=== PATIENT | female | born 1940 | race Asian ===

== ENCOUNTER 2017-11-30 12:32 | Outpatient (CLI) | payer OTHER ==
[~2017-11-30 12:32] MED LIST: ASCO500T20 PO; ASPI-1155 PO; CA/D1TAB7 PO; CARV12.548 PO; DICL100G19 TP; DICL75TA5 PO; DITXL5 PO; FERR325T91 PO; FOLI-43 PO; FOLI-59 PO; GABA-531 PO; GLUC-141 PO; HYDR200T80 PO; LEFL10TA16 PO; LEVO250T2 PO; LEVO75TA7 PO; MAGN250T10 PO; OMEP20CA10 PO; PRED5TAB PO; SACC250C3 PO; TRAM50TA92 PO; VITA400C19 PO; VITD2000 PO
== END 2017-11-30 19:23 | disposition home or self-care (01) ==
LOC: SRD 12:32
PROVIDERS: ATTEND Family Medicine
DX: M06.841 Other specified rheumatoid arthritis, right hand (principal); M51.37 Other intervertebral disc degeneration, lumbosacral region; M47.898 Other spondylosis, sacral and sacrococcygeal region
CPT/HCPCS: 72110; 72220-TC

== ENCOUNTER 2020-08-16 10:46 | Inpatient (IN) | payer OTHER ==
[~2020-08-16] VITALS: Ht 149.9 cm; Wt 54.0 kg
[2020-08-16 10:46] VITALS: BP_SYST 104
[~2020-08-16 10:46] MED LIST changes: -OMEP20CA10 PO; +OMEP20CA15 PO
--- NOTE | 2020-08-16 10:46 | NUR ---
Placed in room 2. Placed on conversion developer, blood pressure machine and pulse oximeter. To gown for exam. Side rails up. Report given to ISAIAS Perez.
--- NOTE | 2020-08-16 10:55 | NUR ---
ER Dr. Euceda at bedside examining patient.
[2020-08-16] MEDS ORDERED: NACL 0.9% 1,500 ML IV ONE (11:00)
[2020-08-16] MEDS ORDERED: LEVOFLOXACIN 500 MG/D5W 100 ML IV ONE (11:00)
[2020-08-16] MEDS ORDERED: VANCOMYCIN HCL 1,000 MG in NS 250 ML IV ONE (11:00)
[2020-08-16 11:26] LABS: BASOPHILS # (AUTO) 0.1 K/uL (0.0-0.2); BASOPHILS % (AUTO) 0.8 % (0.0-2.0); EOSINOPHILS # (AUTO) 0.2 K/uL (0.0-0.4); EOSINOPHILS % (AUTO) 3.5 % (0.0-4.0); HEMATOCRIT 31.4 % (36-48); LYMPHOCYTES # (AUTO) 0.8 K/uL (1.0-5.5); LYMPHOCYTES % (AUTO) 11.9 % (20.5-51.5); MEAN CORPUSCULAR HEMOGLOBIN 32 pg (27-31); MEAN CORPUSCULAR HGB CONC 32 % (32-36); MEAN CORPUSCULAR VOLUME 100 fL (79.0-98.0); MONOCYTES # (AUTO) 0.5 K/uL (0.0-1.0); MONOCYTES % (AUTO) 7.3 % (1.7-9.3); NEUTROPHILS # (AUTO) 5.5 K/uL (1.8-7.7); NEUTROPHILS % (AUTO) 76.5 % (40.0-70.0); PLATELET COUNT (AUTO) 160 K/uL (130-430); RED BLOOD CELL COUNT(AUTO) 3.14 MIL/uL (4.2-6.2); RED CELL DISTRIBUTION WIDTH 16.4 % (9.0-15.0); WHITE BLOOD COUNT (AUTO) 7.1 K/uL (4.8-10.8)
[2020-08-16] MEDS ORDERED: VANCOMYCIN HCL 1000 MG/VIAL IV ONE (11:33)
--- NOTE | 2020-08-16 11:35 | NUR ---
EKG performed at BS by RN. Physician given copy of EKG for review.
[2020-08-16 11:39] LABS: ANION GAP 9 (5-15); CALCIUM 8.3 mg/dL (8.4-11.0); CHLORIDE 104 mmol/L (98-107); CREATININE 1.16 mg/dL (0.55-1.30); GLUCOSE 184 mg/dL (70-99); POTASSIUM 3.9 mmol/L (3.5-5.1); SODIUM SERUM 140 mmol/L (136-145); UREA NITROGEN, BLOOD 24 mg/dL (8-21)
--- NOTE | 2020-08-16 11:39 | NUR ---
Radiology at bedside for CXR
[2020-08-16 11:45] LABS: ALANINE AMINOTRANSFERASE 23 U/L (12-78); ALBUMIN 3.1 g/dL (3.4-4.8); ASPARTATE AMINOTRANSFERASE 26 U/L (10-37); TOTAL BILIRUBIN 0.5 mg/dL (0.0-1.0)
--- NOTE | 2020-08-16 11:47 | NUR ---
Nasal swab obtained to r/o covid, sample sent to lab, pt tolerated well.
--- NOTE | 2020-08-16 13:20 | NUR ---
pt in [facility] with side rails up. Denies pain and no SOB.
[2020-08-16 13:21] LABS: BILIRUBIN,URINE NEGATIVE (NEGATIVE); BLOOD, URINE NEGATIVE (NEGATIVE); GLUCOSE,URINE NEGATIVE (NEGATIVE); KETONES,URINE NEGATIVE (NEGATIVE); LEUKOCYTE ESTERASE ,URINE NEGATIVE (NEGATIVE); NITRITE, URINE NEGATIVE (NEGATIVE); PH,URINE 5.5 (5.0-8.0); PROTEIN URINE 1+ (NEGATIVE); UROBILINOGEN,URINE 0.2 (0.2-1.0)
[2020-08-16 13:25] LABS: CLARITY/URINE SLIGHTLY HAZY (CLEAR); COLOR,URINE AMBER (YELLOW)
[2020-08-16 13:33] LABS: BACTERIA,URINE FEW /HPF (None Seen); HYALINE CASTS, URINE 0-10 /LPF (None Seen); RBC,URINE 0-3 /HPF (0-3); URINE AMORPHOUS URATE 2+ /HPF (None Seen); WBC,URINE 0-3 /HPF (0-3)
--- NOTE | 2020-08-16 14:05 | NUR ---
Pt to CT. Pt stable
[2020-08-16] MEDS ORDERED: HYDROcodone/ACETAMIN 5-325 MG TAB (NORCO/ VICODIN) PO PRN (14:15)
[2020-08-16] MEDS ORDERED: MORPHINE 4 MG/ML INJ. SYRINGE IVP PRN (14:15)
--- NOTE | 2020-08-16 14:32 | NUR ---
Pt returned from CT. Pt is alert and oriented. Pt with IVF continued. Side rails up.
[2020-08-16] MEDS: NACL 0.9% 1,000 ML IV SCH ×2 (14:37→21:43)
--- NOTE | 2020-08-16 15:00 | NUR ---
ADMISSION NOTE Received patient from ER via batool, received report from CHON ESPARZA. Patient admitted with diagnosis of SEPSIS. Patient oriented to hospital routine, call light, toileting and safety-patient verbalized understanding. Prior to admission to the floor, the patient's daughter Nayana called, she very distraught and was asking to stay wit her mom in the hospital. The patient's daughter states," my mom is very hard of hearing and her right arm doesn't work at all, she needs someone to help her constantly." Informed the daughter that the Charge Nurse and Legal Officer would be notified of her request, but at this time typically visitors are not allowed due to coronavirus, she verbalized understanding and still asking for her request to be relayed. Her request with relayed and patient was placed in private room for now.
[2020-08-16 15:15] VITALS: BP_SYST 142
[2020-08-16 15:22] VITALS: BP_SYST 142
[2020-08-16] MEDS ORDERED: LEVO75TA7 PO (15:40)
[2020-08-16] MEDS ORDERED: PANT20TA2 PO (17:30)
[2020-08-16] MEDS ORDERED: POLY30DR OP (17:30)
[2020-08-16] MEDS ORDERED: TRAM100T39 PO (17:30)
[2020-08-16] MEDS ORDERED: [UNRECOGNIZED DRUG - OTHER] PO (17:30)
[2020-08-16] MEDS ORDERED: [UNRECOGNIZED DRUG - OTHER] PO (17:30)
[2020-08-16] MEDS ORDERED: LIOT5TAB11 PO (17:30)
[2020-08-16] MEDS ORDERED: ROSU10TA2 PO (17:30)
[2020-08-16] MEDS ORDERED: OMEP20CA15 PO (17:30)
[2020-08-16] MEDS ORDERED: NEU300 PO (17:30)
[2020-08-16] MEDS ORDERED: BACL10TA PO (17:30)
[2020-08-16] MEDS ORDERED: COR12.5 PO (17:30)
[2020-08-16] MEDS ORDERED: FERR236T3 PO (17:30)
[2020-08-16] MEDS ORDERED: DICL100G19 TP (17:30)
[2020-08-16] MEDS ORDERED: GLUC-160 PO (17:30)
[2020-08-16] MEDS ORDERED: ZPACK (17:32)
[2020-08-16] MEDS ORDERED: AZIT500T2 PO (17:32)
[2020-08-16] MEDS ORDERED: KETO60CR2 TP (17:32)
--- NOTE | 2020-08-16 17:35 | NUR ---
Dr. Khan rounds assessed patient and spoke with the patient and her daughter at bedside, informed Dr. Khan that medication reconciliation was entered into the computer, will inform primary nurse Yocasta ESPARZA. Addendum: 08/16/20 at 1745 by Paulo Castrejon RN Milton Rust RN of MD visit. Changed diet to puree, lactose free, vegetarian (no broccoli).
[2020-08-16] MEDS ORDERED: traMADol HCL HCL 50 MG TABLET (ULTRAM) PO PRN (19:15)
--- NOTE | 2020-08-16 19:15 | NUR ---
OPENING NOTE Patient is resting, food tray in front of patient, bed side commode at bedside. No IV site noted, no respiratory distress or pain noted. Call light within reach, bed alarm on, bed at lowest position. Will continue to monitor.
--- NOTE | 2020-08-16 19:35 | NUR ---
Closing Note patient in bed sitting up, no signs of distress noted, patient a/o x 4, safety measures maintained through out shift, bed locked and at low position, call light within reach, fall and aspiration precautions maintained, endorsed patient care to oncoming assistant shift supervisor nurse.
[2020-08-16 20:00] VITALS: BP_SYST 159
[2020-08-16] MEDS ORDERED: PIPERACILLIN/TAZOBACTAM 3.375 GM/VIAL (ZOSYN) IV ONE (20:40)
--- NOTE | 2020-08-16 21:00 | NUR ---
IV RE-INSERTION: Restarted on Left forearm 22g. Will observe for any signs of infiltration.
[2020-08-16] MEDS: CARVEDILOL 12.5 MG TABLET (COREG) PO SCH (21:40)
[2020-08-16] MEDS: BACLOFEN 10 MG TABLET PO SCH (21:40)
[2020-08-16] MEDS: GABAPENTIN 300 MG CAPSULE PO SCH (21:40)
[2020-08-16] MEDS: PANTOPRAZOLE SODIUM 40 MG TAB PO SCH (21:40)
[2020-08-16] MEDS: sulfASALAZINE 500 MG TABLET (AZULFIDINE) PO SCH (21:41)
[2020-08-16] MEDS: PIPERACILLIN/TAZO 3.375 GM in NS 50 ML IV SCH (21:43)
--- NOTE | 2020-08-16 21:43 | NUR ---
SPOKE TO DAUGHTER, ANUP, AT PATIENT'S BEDSIDE. WAS UPDATED ON THE FOOD AND DIET WITH ALLERGIES TO BROCCOLI AND NEED FOR PATIENT'S DIET TO BE PUREED, WITH NO BEEF, JETT, OR HAM. EXPLAINED AND UPDATED ON PATIENT AND DAUGHTER ON PLAN OF CARE.
--- NOTE | 2020-08-16 23:10 | NUR ---
Assisted patient to commode, patient tolerated well. Patient urinated clear urine. Call light within reach. Will continue to monitor.
[2020-08-17] VITALS: BP_SYST 118
--- NOTE | 2020-08-17 | NUR ---
LOOSE STOOL PATIENT HAD AND EPISODE OF LOOSE STOOL. PROVIDED INCONTINENCE CARE. WILL CONTINUE TO MONITOR. Addendum: 08/18/20 at 0327 by Arianna Trujillo RN WRONG DATE. CORRECT DATE IS 08/18/20 AT 0000.
--- NOTE | 2020-08-17 01:21 | NUR ---
Patient asleep, rise and fall of chest noted. HOB elevated. Call light in hand. Will continue to monitor.
--- NOTE | 2020-08-17 04:08 | NUR ---
Patient is sleeping, eyes closed. No distress noted. Call light within reach. Bed alarm on, bed at lowest position. Will continue to monitor.
[2020-08-17] MEDS: PIPERACILLIN/TAZO 3.375 GM in NS 50 ML IV SCH (05:29)
[2020-08-17] MEDS: LEVOTHYROXINE SODIUM 0.075 MG TABLET PO SCH (05:58)
--- NOTE | 2020-08-17 06:15 | NUR ---
SPOKE TO DIETARY ABOUT PATIENT'S DIET: PUREED, NO BROCCOLI, NO PORK, NO JETT, NO HAM, OK TO TURKEY AND CHICKEN EXPLAINED THAT PATIENT HAD HAD A BAD EXPERIENCE LAST NIGHT AND WE HOPE THAT SHE WILL HAVE A BETTER ONE.
--- NOTE | 2020-08-17 06:20 | NUR ---
SPOKE TO DAUGHTER, ANUP, AND EXPLAINED THAT DIETARY HAD BEEN SPOKEN TO AND UPDATED ON PATIENT'S STATUS. SHE HOPES FOR AN UPDATE FROM THE DOCTOR.
--- NOTE | 2020-08-17 06:32 | NUR ---
CLOSING NOTES Patient speaking to Nayana rodriguez by cell phone, no signs of acute respiratory distress noted. IV site patent, dressings c/d/i, IVF running. Call light within reach, bed alarm on, bedside commode at bedside, bed at lowest position. All needs met throughout shift. Will endorse care to oncoming shift.
[2020-08-17 06:42] LABS: BASOPHILS # (AUTO) 0.1 K/uL (0.0-0.2); BASOPHILS % (AUTO) 0.7 % (0.0-2.0); EOSINOPHILS # (AUTO) 0.6 K/uL (0.0-0.4); EOSINOPHILS % (AUTO) 6.7 % (0.0-4.0); HEMATOCRIT 29.1 % (36-48); HEMOGLOBIN 9.3 g/dL (12.0-16.0); LYMPHOCYTES # (AUTO) 1.4 K/uL (1.0-5.5); LYMPHOCYTES % (AUTO) 16.5 % (20.5-51.5); MEAN CORPUSCULAR HEMOGLOBIN 31 pg (27-31); MEAN CORPUSCULAR HGB CONC 32 % (32-36); MEAN CORPUSCULAR VOLUME 98 fL (79.0-98.0); MONOCYTES % (AUTO) 11.1 % (1.7-9.3); NEUTROPHILS # (AUTO) 5.6 K/uL (1.8-7.7); PLATELET COUNT (AUTO) 152 K/uL (130-430); RED BLOOD CELL COUNT(AUTO) 2.96 MIL/uL (4.2-6.2); RED CELL DISTRIBUTION WIDTH 15.8 % (9.0-15.0); WHITE BLOOD COUNT (AUTO) 8.6 K/uL (4.8-10.8)
[2020-08-17] MEDS ORDERED: OMEPRAZOLE Non-Formulary 20 MG CAPSULE.DR PO SCH (07:00)
[2020-08-17 07:04] LABS: ANION GAP 6 (5-15); CALCIUM 7.7 mg/dL (8.4-11.0); CHLORIDE 109 mmol/L (98-107); CREATININE 0.73 mg/dL (0.55-1.30); GLUCOSE 89 mg/dL (70-99); POTASSIUM 3.5 mmol/L (3.5-5.1); SODIUM SERUM 142 mmol/L (136-145); UREA NITROGEN, BLOOD 16 mg/dL (8-21)
--- NOTE | 2020-08-17 07:30 | NUR ---
OPENING NOTES: RECEIVED PATIENT FROM PLUMBING INSTRUCTOR NURSE. PATIENT IS AWAKE AND ALERT x4 LAYING DOWN IN BED. PATIENT IS TOLERATING OXYGEN ON ROOM AIR WITH NO SIGNS OF DISTRESS OR SHORTNESS OF BREATH NOTED. PATIENT DENIES ANY PAIN AT THE MOMENT. IV SITE IS PATENT WITH NO SIGNS OF INFILTRATION NOTED. PATIENT IN STABLE CONDITION. SAFETY, FALL AND ASPIRATION PRECAUTIONS ARE IN PLACE. BED LOCKED IN LOWEST POSITION WITH CALL LIGHT IN REACH. WILL CONTINUE TO MONITOR PATIENT FOR ANY CHANGES.
--- NOTE | 2020-08-17 07:31 | NUR ---
Nutrition Update Lobo Scale 18 noted. Pt admitted for Sepsis Diet: Cardiac BMI: 23.8 kg/m2 RD to follow per nutrition care standards.
[2020-08-17 08:03] VITALS: BP_SYST 137
[2020-08-17] MEDS: ATORVASTATIN 20 MG TABLET PO SCH (08:31)
[2020-08-17] MEDS: predniSONE 5 MG TABLET PO SCH (08:31)
[2020-08-17] MEDS: ASCORBIC ACID 500 MG TABLET PO SCH (08:31)
[2020-08-17] MEDS: CARVEDILOL 12.5 MG TABLET (COREG) PO SCH ×2 (08:31→21:57)
[2020-08-17] MEDS: CHOLECALCIFEROL (VITAMIN D3) 2,000 UNIT TABLET PO SCH (08:31)
[2020-08-17] MEDS: BACLOFEN 10 MG TABLET PO SCH ×2 (08:31→21:55)
[2020-08-17] MEDS: sulfASALAZINE 500 MG TABLET (AZULFIDINE) PO SCH ×2 (08:31→21:55)
[2020-08-17] MEDS: GABAPENTIN 300 MG CAPSULE PO SCH ×3 (08:31→21:55)
[2020-08-17] MEDS: FOLIC ACID 1 MG TABLET PO SCH (08:32)
[2020-08-17] MEDS: KETOCONAZOLE 2%, 60 GM TOPICAL CREAM. (NIZORAL) TP SCH (08:39)
[2020-08-17] MEDS ORDERED: D3 PO SCH (09:00)
[2020-08-17] MEDS ORDERED: BOSWELLIA SERRA PO SCH (09:00)
[2020-08-17] MEDS ORDERED: GLUCOSAMINE PO SCH (09:00)
--- NOTE | 2020-08-17 09:34 | NUR ---
CONSULTATION PAGED/CALLED Reason for Consultation: [] loss of consiousness with loss of bladder Person Who was Notified: [] Jen Consulting Physician: [] DR Lon GARCIAS Hog Worker Specialty: [] NEUROLOGY Ordering Physician: [] ETIENNE MYERS
--- NOTE | 2020-08-17 10:19 | NUR ---
RN ROUNDS: PATIENT IS AWAKE AND ALERT x4 LAYING DOWN IN BED. PATIENT IS TOLERATING OXYGEN ON ROOM AIR WITH NO SIGNS OF DISTRESS OR SHORTNESS OF BREATH NOTED. IV SITE IS PATENT WITH NO SIGNS OF INFILTRATION NOTED. PATIENT IS NOW MED SURG. TELEMETRY BOX REMOVED AND CLEANED. PATIENT TOLERATED IT WELL. PATIENT IN STABLE CONDITION. WILL CONTINUE TO MONITOR PATIENT FOR ANY CHANGES.
[2020-08-17 11:24] VITALS: BP_SYST 133
[2020-08-17] MEDS: FERROUS GLUCONATE 300 MG TABLET PO SCH ×3 (11:38→21:55)
[2020-08-17] MEDS: oxyCODONE HCL 5 MG TABLET PO SCH ×2 (11:39→21:56)
[2020-08-17] MEDS: NACL 0.9% 1,000 ML IV SCH (11:44)
--- NOTE | 2020-08-17 12:08 | NUR ---
RN ROUNDS: PATIENT IS AWAKE AND ALERT x4 LAYING DOWN IN BED. PATIENT IS TOLERATING OXYGEN ON ROOM AIR WITH NO SIGNS OF DISTRESS OR SHORTNESS OF BREATH NOTED. IV SITE IS PATENT WITH NO SIGNS OF INFILTRATION NOTED. PATIENT IN STABLE CONDITION. WILL CONTINUE TO MONITOR PATIENT FOR ANY CHANGES.
--- NOTE | 2020-08-17 12:35 | NUR ---
FAMILY: SPOKE WITH DAUGHTER ANUP REGARDING PATIENT'S STATUS. ANSWERED ALL QUESTIONS TO THE BEST OF MY ABILITY. INFORMED HE I WILL KEEP HER UPDATED.
[2020-08-17] MEDS ORDERED: PIPERACILLIN/TAZO 3.375 GM in NS 50 ML IV SCH (14:00)
[2020-08-17 15:32] VITALS: BP_SYST 144
--- NOTE | 2020-08-17 16:40 | NUR ---
RN ROUNDS: PATIENT IS AWAKE AND ALERT x4 LAYING DOWN IN BED. PATIENT DENIES ANY PAIN AT THE MOMENT. PATIENT IS TOLERATING OXYGEN ON ROOM AIR WITH NO SIGNS OF DISTRESS OR SHORTNESS OF BREATH NOTED. IV SITE IS PATENT WITH NO SIGNS OF INFILTRATION NOTED. PATIENT IN STABLE CONDITION. WILL CONTINUE TO MONITOR PATIENT FOR ANY CHANGES.
[2020-08-17] MEDS: DICLOFENAC SODIUM 1% TP SCH (17:30)
--- NOTE | 2020-08-17 18:45 | NUR ---
CLOSING NOTES: PATIENT IS AWAKE AND ALERT x4 LAYING DOWN IN BED EATING DINNER IN BED. PATIENT IS TOLERATING OXYGEN ON ROOM AIR WITH NO SIGNS OF DISTRESS OR SHORTNESS OF BREATH NOTED. PATIENT DENIES ANY PAIN AT THE MOMENT. IV SITE IS PATENT WITH NO SIGNS OF INFILTRATION NOTED AND RUNNING FLUIDS ORDERED. PATIENT IN STABLE CONDITION. SAFETY, FALL AND ASPIRATION PRECAUTIONS REMAINED IN PLACE THROUGHOUT THE SHIFT. BED LOCKED IN LOWEST POSITION WITH CALL LIGHT IN REACH. WILL ENDORSE PATIENT CARE TO ONCOMING FOREST FIREFIGHTER NURSE.
--- NOTE | 2020-08-17 19:35 | NUR ---
OPENING NOTE RECEIVED PATIENT AWAKE AOX4. IN BED WATCHING TV. RESPIRATIONS EVEN AND UNLABORED ON ROOM AIR. NO DISTRESS NOTED AT THIS TIME. INCONTINENCE OF URINE AND BOWELS NOTED, MALODOROUS LOOSE STOOL NOTED. REPORTED THAT PATIENT CONSUMED DAIRY PRODUCTS WITH MEALS THROUGHOUT THE DAY ALTHOUGH SHE IS LACTOSE INTOLERANT WITH SENSITIVITY TO MILK PRODUCTS. WILL CONTINUE TO MONITOR BOWEL PATTERN. PATIENT TOLERATING IV FLUIDS TO IV SITE WITH NO SIGNS OF INFILTRATION NOTED. FALL AND SAFETY MEASURES IN PLACE, BED LOCKED IN LOW POSITION WITH CALL LIGHT IN REACH. WILL CONTINUE TO MONITOR.
[2020-08-17 20:00] VITALS: BP_SYST 142
--- NOTE | 2020-08-17 21:00 | NUR ---
SPOKE WITH DAUGHTER PATIENTS DAUGHTER ANUP PRESENTED TO ER ADMITTING TO DROP OFF CLOTHING ITEMS (1 MULTICOLORED DRESS AND 1 PAIR OF UNDERWEAR), 1 BOX OF LILIBETH CRACKERS, AND 1 LOAF OF BREAD. UPDATED HER WITH PATIENT CONDITION AND ANSWERED ALL QUESTIONS SHE HAD REGARDING PATIENTS CONDITION.
--- NOTE | 2020-08-17 21:30 | NUR ---
DAUGHTER CALLED DAUGHTER ANUP CALLED TO REPORT PATIENT MAY BE NERVOUS ABOUT SCHEDULED MRI AND SHE WANTS HER MOTHER TO BE GIVEN XANAX PRIOR TO MRI. DAUGHTER STATES PATIENT WAS GIVEN ATIVAN IN THE PAST AND BECAME DISORIENTED SO SHE DOES NOT WANT HER TO RECEIVE ATIVAN AT ALL. DAUGHTER CONTINUES TO REPEAT HER REQUEST FOR PATIENT TO ONLY RECEIVE XANAX PRIOR TO MRI. EDUCATED PATIENT WILL ENDORSE HER REQUEST TO AM NURSE. ANUP VERBALIZED UNDERSTANDING.
[2020-08-17] MEDS: PANTOPRAZOLE SODIUM 40 MG TAB PO SCH (21:55)
--- NOTE | 2020-08-17 22:00 | NUR ---
CRITICAL RESULT RECEIVED CALL FROM CHRISTINA FLETCHER IN LAB REPORTING CRITICAL RESULT OF BLOOD CULTURE WITH GRAM NEGATIVE RODS NOTED. WILL REPORT TO PROVIDER DR ESPINOZA.
--- NOTE | 2020-08-17 22:30 | NUR ---
DAUGHTER CALLED RECEIVED CALL FROM DAUGHTER ANUP, SHE REPORTED PATIENT DOES NOT WANT TO HAVE XANAX PRIOR TO MRI. WILL ENDORSE TO AM NURSE.
--- NOTE | 2020-08-17 23:20 | NUR ---
SPOKE WITH DR ESPINOZA REPORTED CRITICAL RESULT, ORDERS RECEIVED AND CARRIED OUT.
[2020-08-18] VITALS: BP_SYST 140
--- NOTE | 2020-08-18 | NUR ---
LOOSE STOOL PATIENT HAD AND EPISODE OF LOOSE STOOL. PROVIDED INCONTINENCE CARE. WILL CONTINUE TO MONITOR.
--- NOTE | 2020-08-18 00:30 | NUR ---
CT OF ABDOMEN AND PELVIS TRANSPORTED PATIENT TO RADIOLOGY VIA WHEELCHAIR. PATIENT TOLERATED.
--- NOTE | 2020-08-18 00:55 | NUR ---
RETURN FROM CT, PATIENT COMPLAINS OF RIGHT KNEE PAIN. WILL MEDICATE ORDERED.
--- NOTE | 2020-08-18 01:10 | NUR ---
PAIN MEDICATION PATIENT COMPLAINS OF RIGHT KNEE PAIN REQUESTING PAIN MEDICATION, WILL MEDICATE ORDERED.
--- NOTE | 2020-08-18 01:30 | NUR ---
IV SITE COMPROMISED NOTED IV SITE LEAKING, STOPPED IV FLUIDS AND EDUCATED PATIENT IV SITE IS NO LONGER FUNCTIONING WELL AND WILL HAVE TO REPLACE IV. PATIENT REFUSES IV REPLACEMENT AT THIS TIME. PATIENT STATES SHE DOES NOT WANT IV FLUIDS BECAUSE SHE FEELS THEY ARE CONTRIBUTING TO HER LOOSE BOWEL MOVEMENTS. DESPITE EDUCATION ON IMPORTANCE OF HAVING IV ACCESS PATIENT CONTINUES TO REFUSE. WILL CONTINUE TO MONITOR IV SITE.
--- NOTE | 2020-08-18 03:30 | NUR ---
RN ROUNDS PATIENT SLEEPING WITH NO SIGNS OF DISTRESS NOTED. WILL CONTINUE TO MONITOR.
--- NOTE | 2020-08-18 05:40 | NUR ---
DAUGHTER CALLED ANUP REPORTS SHE SPOKE TO HER MOTHER ON THE PHONE AND HER MOTHER IS CONCERNED ABOUT HAVING SO MANY BOWEL MOVEMENTS. DAUGHTER IS SPEAKING HARSHLY AND REQUESTING FOR A GI DOCTOR TO EVALUATE HER MOTHER RIGHT NOW. EDUCATED DAUGHTER I WILL EXPRESS HER CONCERNS TO DR ESPINOZA, WHO WILL THEN DECIDE IF A GI CONSULTATION IS NEEDED. UPDATED DAUGHTER A CONSULTATION WITH INFECTIOUS DISEASE DOCTOR HAS ALREADY BEEN ORDERED. DAUGHTER REPORTS PATIENT HAD MORE THAN 10 BOWEL MOVEMENTS THIS EVENING, INFORMED DAUGHTER UP TO THIS POINT PATIENT HAS HAD 4 BOWEL MOVEMENTS. EDUCATED DAUGHTER SINCE PATIENT LAST CONSUMED MILK PRODUCTS WITH DINNER DESPITE HER INTOLERANCE TO LACTOSE. LOOSE STOOL IS A KNOWN SIDE EFFECT AND IS ALSO A SIDE EFFECT OF ANTIBIOTIC THERAPY. EDUCATED DAUGHTER IF PATIENT CONTINUES TO HAVE LOOSE STOOL THIS MORNING, THE DOCTOR MAY ORDER STOOL SAMPLE TO CHECK FOR C-DIFF ALSO CONSIDERING PATIENT HAD A HISTORY OF C-DIFF. DAUGHTER REQUESTING FOR ME TO CALL DR ESPINOZA AND HAVE HER CALL DAUGHTER BACK NOW. DAUGHTER STATED HER MOTHER IS CALLING HER SO SHE HUNG UP THE PHONE.
--- NOTE | 2020-08-18 05:45 | NUR ---
DAUGHTER CALLED ANUP CALLED BACK DEMANDING TO SPEAK TO MD NOW. INFORMED DAUGHTER I WILL EXPRESS HER CONCERNS TO MD AND CONTINUE TO MONITOR PATIENT. STATED IS LIKELY TO MAKE ROUNDS THIS MORNING AND THEN CALL HER SOMETIME LATER. DAUGHTER STATES IF HER MOTHER DOES NOT GET EVALUATED BY A GI DOCTOR NOW THEN PATIENT WANTS TO GO TO ANOTHER HOSPITAL. ME HER MOTHER WANTS TO GO HOME AT THIS TIME. EDUCATED HER ON IMPORTANCE OF MEDICAL COMPLIANCE Addendum: 08/18/20 at 0845 by Arianna Trujillo RN NOTE CONTINUED INFORMED PATIENT I WILL NOTIFY MD OF HER CONCERNS AND WILL UPDATE HER WITH PLAN OF CARE. CHARGE NURSE AWARE OF BOTH PATIENT AND DAUGHTER'S CONCERNS.
[2020-08-18] MEDS ORDERED: DEX IS IV SCH (06:00)
[2020-08-18] MEDS ORDERED: TAZO IV SCH (06:00)
[2020-08-18] MEDS ORDERED: PIPERACILLIN IV SCH (06:00)
--- NOTE | 2020-08-18 06:00 | NUR ---
DAUGHTER CALLED : CALLED AND STATED SHE WANTS TO TALK TO CHARGE NURSE,I TALKED WITH HER , DAUGHTER IS VERY HARSH ,AND SAYING " MY MOM HAD THE H/O C DIFF 3 YRS AGO , SHE HAD 10 BM TODAY HOW COME NO BODY WANTS TO DO ANY C DIFF ", EXPLAINED TO THE DAUGHTER THAT EVEN THOUGH PT IS LACTOSE INTOLERANCE SHE HAD MILK DURING HER MEALS YESTERDAY , WE WILL MONITOR HER TO MAKE SURE THAT ITS NOT THE REASON FOR DIARRHEA AND IF SHE IS CONTINUOUSLY HAVING DIARRHEA WE WILL COLLECT STOOL ALSO NOTIFIED HER THAT PER RN PT HAD ONLY 4 LOOSE BM . DAUGHTER IS DEMANDING TO HAVE C DIFF CHECK , INFORMED HER THAT WILL GET ORDER FROM MD AND WILL COLLECT , NOW DAUGHTER IS SAYING THAT "I CAME TO KNOW THAT MY MOM IS SHARING ROOM WITH ANOTHER PT,AND MY MOM IS IMMUNO COMPROMISED , ASKED HER WHAT IS THE HISTORY , DAUGHTER STATED SHE HAS RHEUMATOID ARTHRITIS , HTN AND SHE IS 80 YRS OLD , INFORMED HER THAT BEFORE PLACING A PT WITH ANOTHER PT WE ALWAYS MAKE SURE THAT PT IS NOT ON ANY TYPE OF ISOLATION AND OK TO BE WITH THE OTHER PT THEN ONLY WE WILL BRING THE PT TO THE ROOM . BUT DAUGHTER DOESN'T WANT TO LISTEN TO IT , SHE STATED , MY MOM IS OLD AND SHE IS NOT THINKING THAT SHE IS SAFE THERE , DAUGHTERS NEXT CONCERN IS SHE WANTS PTS DAUGHTER TO CALL HER BEFORE SHE GOES TO WORK , INFORMED HER THAT C.N DOESNT KNOW WHAT TIME MD IS MAKING ROUND , I WILL NOTIFY DAY SHIFT C.N THAT YOU WANT TO TALK WITH MD , DAUGHTER STATED I WANT TO TALK WITH HER NOW NOT LATER , YOU CANC CALL HER AND TELL HER TO CALL ME , INFORMED THAT THATS NOT HOW IT WORKS , WHEN MD MAKES ROUNDS SHE WILL GO THROUGH PTS CHART AND LABS AND SHE WILL CALL YOU . DAUGHTER WAS NOT HAPPY STILL . SHE ASKED ME TO NOTIFY MD RIGHT AWAY TO CALL HER .
--- NOTE | 2020-08-18 06:10 | NUR ---
REFUSING IV ANTIBIOTICS PATIENT REFUSING IV ANTIBIOTICS AT THIS TIME SHE FEELS THE ANTIBIOTICS ARE CAUSING HER LOOSE STOOLS. EDUCATED PATIENT ON REASON FOR ANTIBIOTICS, PATIENT CONTINUES TO REFUSE. PATIENT CONTINUES REFUSING IV REINSERTION AT THIS TIME, IV FLUIDS HELD SINCE NO IV ACCESS. PATIENT REFUSING MORNING PO MEDICATIONS. WILL CONTINUE TO MONITOR AND UPDATE MD OF PATIENTS CONTINUED REFUSAL OF TREATMENT.
--- NOTE | 2020-08-18 06:15 | NUR ---
SPOKE WITH DR ESPINOZA INFORMED MD OF BOTH PATIENT AND DAUGHTERS CONCERNS. REPORTED LOOSE STOOLS AND PATIENTS HISTORY OF C-DIFF. ORDERS RECEIVED TO COLLECT STOOL SAMPLES FOR C-DIFFICILE. REPORTED PATIENTS REFUSAL TO TAKE IV ZOSYN THIS MORNING BECAUSE SHE FEELS ITS WHATS CAUSING HER LOOSE STOOLS DESPITE MULTIPLE ATTEMPTS TO EDUCATE PATIENT. NO NEW ORDERS RECEIVED. REPORTED DAUGHTERS REQUEST TO SPEAK TO MD. DR ESPINOZA STATED SHE WILL CALL DAUGHTER LATER AFTER SHE COMES INTO HOSPITAL. UPDATED CHARGE NURSE.
[2020-08-18 07:00] LABS: BASOPHILS % (AUTO) 0.7 % (0.0-2.0); EOSINOPHILS # (AUTO) 0.6 K/uL (0.0-0.4); EOSINOPHILS % (AUTO) 9.1 % (0.0-4.0); HEMATOCRIT 28.1 % (36-48); LYMPHOCYTES # (AUTO) 2.1 K/uL (1.0-5.5); MEAN CORPUSCULAR HEMOGLOBIN 32 pg (27-31); MEAN CORPUSCULAR HGB CONC 32 % (32-36); MEAN CORPUSCULAR VOLUME 99 fL (79.0-98.0); MONOCYTES # (AUTO) 0.7 K/uL (0.0-1.0); MONOCYTES % (AUTO) 9.3 % (1.7-9.3); NEUTROPHILS # (AUTO) 3.7 K/uL (1.8-7.7); NEUTROPHILS % (AUTO) 51.9 % (40.0-70.0); PLATELET COUNT (AUTO) 163 K/uL (130-430); RED BLOOD CELL COUNT(AUTO) 2.85 MIL/uL (4.2-6.2); RED CELL DISTRIBUTION WIDTH 15.6 % (9.0-15.0); WHITE BLOOD COUNT (AUTO) 7.1 K/uL (4.8-10.8)
[2020-08-18] MEDS: LEVOTHYROXINE SODIUM 0.075 MG TABLET PO SCH (07:00)
[2020-08-18 07:11] LABS: ANION GAP 5 (5-15); CALCIUM 7.8 mg/dL (8.4-11.0); CHLORIDE 108 mmol/L (98-107); CREATININE 0.66 mg/dL (0.55-1.30); GLUCOSE 87 mg/dL (70-99); PHOSPHORUS 2.7 mg/dL (2.7-4.5); POTASSIUM 3.7 mmol/L (3.5-5.1); SODIUM SERUM 141 mmol/L (136-145); UREA NITROGEN, BLOOD 19 mg/dL (8-21)
--- NOTE | 2020-08-18 07:30 | NUR ---
OPENING NOTES: RECEIVED PATIENT FROM SKIVER UPPERS OR LININGS NURSE. PATIENT IS AWAKE AND ALERT x4 LAYING DOWN IN BED. PATIENT IS TOLERATING OXYGEN ON ROOM AIR WITH NO SIGNS OF DISTRESS OR SHORTNESS OF BREATH NOTED. PATIENT DENIES ANY PAIN AT THE MOMENT. PATIENT STATES IV SITE IS LEAKING AND PATIENT REFUSES TO HAVE IV FLUIDS AND ANTIBIOTICS. MD AWARE. PATIENT REFUSING TO EAT ANYTHING DUE TO PATIENT HAVING DIARRHEA. WILL NOTIFY MD. PATIENT IN STABLE CONDITION. SAFETY, FALL AND ASPIRATION PRECAUTIONS ARE IN PLACE. BED LOCKED IN LOWEST POSITION WITH CALL LIGHT IN REACH. WILL CONTINUE TO MONITOR PATIENT FOR ANY CHANGES.
[2020-08-18 08:07] VITALS: BP_SYST 162
--- NOTE | 2020-08-18 09:00 | NUR ---
MORNING MEDICATIONS: PATIENT IS REFUSING ALL PO MEDICATIONS. MD AWARE.
--- NOTE | 2020-08-18 09:39 | NUR ---
Nutrition Note RD was notified of pt's allergy to milk containing products and preference for Ensure Clear TID w/ meals instead of Ensure Enllive TID that comes standard w/ pureed diet. RD implemented ONS modification via EMR. RD to continue to follow as per nutrition care standards.
[2020-08-18] MEDS: KETOCONAZOLE 2%, 60 GM TOPICAL CREAM. (NIZORAL) TP SCH (10:51)
[2020-08-18] MEDS: DICLOFENAC SODIUM 1% TP SCH (10:51)
[2020-08-18] MEDS: BACLOFEN 10 MG TABLET PO SCH ×2 (10:52→21:33)
[2020-08-18] MEDS: FERROUS GLUCONATE 300 MG TABLET PO SCH ×3 (10:52→21:38)
[2020-08-18] MEDS: CHOLECALCIFEROL (VITAMIN D3) 2,000 UNIT TABLET PO SCH (10:52)
[2020-08-18] MEDS: predniSONE 5 MG TABLET PO SCH (10:52)
[2020-08-18] MEDS: ATORVASTATIN 20 MG TABLET PO SCH (10:52)
[2020-08-18] MEDS: sulfASALAZINE 500 MG TABLET (AZULFIDINE) PO SCH ×2 (10:52→21:39)
[2020-08-18] MEDS: FOLIC ACID 1 MG TABLET PO SCH (10:52)
[2020-08-18] MEDS: ASCORBIC ACID 500 MG TABLET PO SCH (10:52)
[2020-08-18] MEDS: LACTOBACILLUS RHAMNOSUS GG 1 CAP CAPSULE PO SCH ×3 (10:52→21:33)
[2020-08-18] MEDS: GABAPENTIN 300 MG CAPSULE PO SCH ×3 (10:53→21:35)
[2020-08-18] MEDS: oxyCODONE HCL 5 MG TABLET PO SCH ×2 (10:53→21:34)
[2020-08-18] MEDS: CARVEDILOL 12.5 MG TABLET (COREG) PO SCH ×2 (10:54→21:35)
--- NOTE | 2020-08-18 10:55 | NUR ---
RN ROUNDS: PATIENT IS AWAKE AND ALERT x4 LAYING DOWN IN BED. PATIENT AGREED TO TAKE HER MORNING MEDICATIONS AFTER DR. ESPINOZA SPOKE WITH HER. MORNING MEDICATIONS GIVEN. PATIENT TOLERATED THEM WELL. ATTEMPTING TO INSERT NEW IV FOR IV FLUIDS AND ANTIBIOTICS. UNSUCCESSFUL AFTER 1ST ATTEMPT. WILL ATTEMPT TO INSERT NEW ONE LATER. PATIENT IS WAITING TO GO TO MRI. PATIENT IN STABLE CONDITION. WILL CONTINUE TO MONITOR PATIENT FOR ANY CHANGES.
[2020-08-18] MEDS ORDERED: GENTAMICIN 100 mg/50 mL NS 50 ML IV ONE (11:15)
--- NOTE | 2020-08-18 11:15 | NUR ---
IV ANTIBIOTICS: UNABLE TO GIVE IV ANTIBIOTICS DUE TO PATIENT NOT HAVING IV ACCESS. AWAITING PICC LINE NURSE TO COME.
[2020-08-18 11:25] VITALS: BP_SYST 177
--- NOTE | 2020-08-18 12:16 | NUR ---
RN ROUNDS: PATIENT IS AWAKE AND ALERT x4 LAYING DOWN IN BED EATING LUNCH. PATIENT IS TOLERATING OXYGEN ON ROOM AIR WITH NO SIGNS OF DISTRESS OR SHORTNESS OF BREATH NOTED. UNSUCCESSFUL AFTER SECOND ATTEMPT ON IV INSERTION. PATIENT WANTED TO STOP, EAT AND DRINK SOMETHING BEFORE TRYING ONE LAST TIME. WILL NOTIFY MD IF UNABLE TO INSERT NEW IV FOR POSSIBLE PICC OR MIDLINE FOR ANTIBIOTICS AND FLUIDS. PATIENT IN STABLE CONDITIONS. WILL CONTINUE TO MONITOR PATIENT FOR ANY CHANGES.
--- NOTE | 2020-08-18 12:17 | NUR ---
DC PLANNING Spoke w DR hKan this am in [facility]. Plan for home with home health tomorrow. Spoke with pt @ bedside, verified address on face sheet correct, agreeable with home health. States to call dtr for preference. Called & spoke with dtr Nayana Portillo, cell [phone], states discussed with Md & agreeable with home health. Md recommended [facility] to dtr & that is her preference. If they do not accept then has no preference.
--- NOTE | 2020-08-18 12:31 | NUR ---
Dietitian Recommendations * Recommend continuing cardiac, lactoovo, puree, Ensure Clear TID (ONS provides 720 kcal/day, 24 gm protein/day) * Encourage increase PO intakes LP, RD Please refer to Nutrition Assessment for details. Addendum: 08/18/20 at [address] Amended: Links added.
--- NOTE | 2020-08-18 12:35 | NUR ---
Discharge Planning: [facility] faxed patient referral to Mary (f [phone] p [phone]) DCP to follow up Addendum: 08/18/20 at 1437 by Deedee RUSSELL DCP spoke to Jodie Hernandez (f [phone] p [phone]) patient was accepted, pts daughter will be called after 4:00pm. DCP made Cm aware.
--- NOTE | 2020-08-18 12:58 | NUR ---
CALLED : CALLED DR. ESPINOZA AND LET HER KNOW WE WERE UNSUCCESSFUL AT PUTTING A NEW IV SITE IN. GAVE AN ORDER FOR A PICC LINE. WILL FOLLOW THROUGH WITH ORDERS.
[2020-08-18 13:43] LABS: INR 1.1 (0.8-1.2)
--- NOTE | 2020-08-18 14:47 | NUR ---
RN ROUNDS: PATIENT IS IN MRI. WILL AWAIT PATIENT'S RETURN TO THE FLOOR.
[2020-08-18 15:38] VITALS: BP_SYST 163
--- NOTE | 2020-08-18 16:08 | NUR ---
RN ROUNDS: PATIENT IS AWAKE AND ALERT x4 SITTING ON THE BEDSIDE COMMODE. PATIENT URINATED AND ASSISTED BACK INTO BED. NO BOWEL MOVEMENT NOTED. PATIENT IS TOLERATING OXYGEN ON ROOM AIR WITH NO SIGNS OF DISTRESS OR SHORTNESS OF BREATH NOTED. PATIENT AWAITING PICC LINE NURSE TO COME. NO IV ANTIBIOTICS OR IV FLUIDS WERE GIVEN DUE TO NO IV SITE. PATIENT IN STABLE CONDITION. WILL CONTINUE TO MONITOR PATIENT FOR ANY CHANGES.
--- NOTE | 2020-08-18 16:27 | NUR ---
PICC LINE: PICC LINE NURSE AT BEDSIDE.
--- NOTE | 2020-08-18 17:00 | NUR ---
PICC LINE: PICC LINE INSERTED INTO LEFT UPPER ARM. X-RAY TAKEN. OKAY TO USE PER PICC LINE NURSE.
[2020-08-18] MEDS: NACL 0.9% 1,000 ML IV SCH (17:02)
--- NOTE | 2020-08-18 18:28 | NUR ---
CLOSING NOTES: PATIENT IS AWAKE AND ALERT x4 LAYING DOWN IN BED. PATIENT IS TOLERATING OXYGEN ON ROOM AIR WITH NO SIGNS OF DISTRESS OR SHORTNESS OF BREATH NOTED. PATIENT DENIES ANY PAIN AT THE MOMENT. PICC LINE IS PATENT WITH CLEAN, DRY DRESSING AND NO SIGNS OF INFILTRATION NOTED AND RUNNING FLUIDS ORDERED. PATIENT ASSISTED TO THE BEDSIDE COMMODE. NO BOWEL MOVEMENT NOTED. UNABLE TO COLLECT STOOL SAMPLE FOR C-DIFF. WILL ENDORSE TO BROKERAGE COORDINATOR NURSE IN CASE PATIENT HAS BOWEL MOVEMENT TONIGHT. PATIENT IN STABLE CONDITION. SAFETY, FALL AND ASPIRATION PRECAUTIONS REMAINED IN PLACE THROUGHOUT THE SHIFT. BED LOCKED IN LOWEST POSITION WITH CALL LIGHT IN REACH. WILL ENDORSE PATIENT CARE TO ONCOMING BROKERAGE COORDINATOR NURSE.
--- NOTE | 2020-08-18 19:30 | NUR ---
OPENING NOTES RECEIVED SBAR REPORT FROM DAY SHIFT RN. PT RESTING IN BED, WATCHING TV. ALERT & ORIENTED X4. BREATHING EVEN AND UNLABORED TO ROOM AIR. NO SIGNS OF RESPIRATORY DISTRESS NOTED. LEFT UPPER ARM PICC LINE INTACT, IVF RUNNING ORDERED RATE. CALL LIGHT WITHIN REACH. BED ALARM ON, LOCKED IN LOWEST POSITION. SAFETY AND FALL PRECAUTIONS ARE IN PLACE. WILL CONTINUE TO MONITOR.
[2020-08-18 20:00] VITALS: BP_SYST 156
--- NOTE | 2020-08-18 21:10 | NUR ---
SPOKE TO SERVANDO HEBERT ([phone]) SPOKE TO SERVANDO HEBERT REGARDING UPDATES. Addendum: 08/19/20 at 0702 by Rosa Lam RN ADDITIONAL NOTES DAUGHTER IS SAYING THAT HOME HEALTH NURSE DOESN'T HANDLE PICC LINE. ANUP STATED THAT SHE WANTS TO CHANGE TO PO ANTIBIOTICS, BUT I LET HER KNOW THAT WE STILL WAITING FOR FINAL RESULT OF CULTURE.
--- NOTE | 2020-08-18 21:33 | NUR ---
MEDICATION PASS SCHEDULED MEDICATIONS ADMINISTERED ORDERED. DISCUSSED MEDICATIONS ACTION AND POTENTIAL SIDE EFFECTS. PT VERBALIZED UNDERSTANDING. BREATHING EVEN AND UNLABORED TO ROOM AIR. PT DENIES ANY PAIN AT THIS TIME. IVF RUNNING ORDERED RATE. CALL LIGHT WITHIN REACH. BED ALARM ON, LOCKED IN LOWEST POSITION. SAFETY AND FALL PRECAUTIONS MAINTAINED. WILL CONTINUE TO MONITOR.
[2020-08-18] MEDS: PANTOPRAZOLE SODIUM 40 MG TAB PO SCH (21:35)
[2020-08-19] VITALS: BP_SYST 138
--- NOTE | 2020-08-19 00:05 | NUR ---
RN ROUNDS ASSISTED PT TO BEDSIDE COMMODE, NO BM NOTED. JUST URINE OUTPUT. BREATHING EVEN AND UNLABORED TO ROOM AIR. NO S/S OF ACUTE DISTRESS NOTED. IVF RUNNING ORDERED RATE. PT TOLERATING WELL. CALL LIGHT WITHIN REACH. BED ALARM ON, LOCKED IN LOWEST POSITION. SIDE RAILS UP X3. SAFETY AND FALL PRECAUTIONS MAINTAINED. WILL CONTINUE TO MONITOR.
--- NOTE | 2020-08-19 02:40 | NUR ---
RN ROUNDS ASSISTED PT TO BEDSIDE COMMODE, STILL NO BM NOTED. BREATHING EVEN AND UNLABORED TO ROOM AIR. NO S/S OF ACUTE DISTRESS NOTED. IVF RUNNING ORDERED RATE. BED ALARM ON, LOCKED IN LOWEST POSITION. CALL LIGHT WITHIN REACH. SIDE RAILS UP X3. CLOSE TO NURSING STATION. SAFETY AND FALL PRECAUTIONS ARE IN PLACE. WILL CONTINUE TO MONITOR.
[2020-08-19] MEDS: LEVOTHYROXINE SODIUM 0.075 MG TABLET PO SCH (06:07)
[2020-08-19] MEDS: NACL 0.9% 1,000 ML IV SCH (06:07)
[2020-08-19 06:24] LABS: BASOPHILS # (AUTO) 0.1 K/uL (0.0-0.2); BASOPHILS % (AUTO) 0.6 % (0.0-2.0); EOSINOPHILS # (AUTO) 0.6 K/uL (0.0-0.4); EOSINOPHILS % (AUTO) 7.5 % (0.0-4.0); HEMATOCRIT 31.1 % (36-48); HEMOGLOBIN 9.9 g/dL (12.0-16.0); LYMPHOCYTES # (AUTO) 1.7 K/uL (1.0-5.5); LYMPHOCYTES % (AUTO) 20.8 % (20.5-51.5); MEAN CORPUSCULAR HEMOGLOBIN 32 pg (27-31); MEAN CORPUSCULAR HGB CONC 32 % (32-36); MEAN CORPUSCULAR VOLUME 99 fL (79.0-98.0); MONOCYTES # (AUTO) 0.8 K/uL (0.0-1.0); MONOCYTES % (AUTO) 9.2 % (1.7-9.3); NEUTROPHILS # (AUTO) 5.2 K/uL (1.8-7.7); NEUTROPHILS % (AUTO) 61.9 % (40.0-70.0); PLATELET COUNT (AUTO) 166 K/uL (130-430); RED BLOOD CELL COUNT(AUTO) 3.15 MIL/uL (4.2-6.2); RED CELL DISTRIBUTION WIDTH 15.8 % (9.0-15.0); WHITE BLOOD COUNT (AUTO) 8.3 K/uL (4.8-10.8)
--- NOTE | 2020-08-19 06:44 | NUR ---
CLOSING NOTES PT SLEEPING. BREATHING EVEN AND UNLABORED TO ROOM AIR. NO SIGNS OF RESPIRATORY DISTRESS NOTED. LEFT UPPER ARM PICC LINE INTACT, IVF RUNNING ORDERED RATE. CALL LIGHT WITHIN REACH. BED ALARM ON, LOCKED IN LOWEST POSITION. SAFETY AND FALL PRECAUTIONS ARE IN PLACE. ALL NEEDS ARE MET THROUGHOUT SHIFT. WILL CONTINUE TO MONITOR UNTIL ENDORSE TO DAY SHIFT RN.
--- NOTE | 2020-08-19 06:52 | NUR ---
SPOKE TO DR. ESPINOZA NOTIFIED DR. ESPINOZA REGARDING DAUGHTER'S (ANUP) CONCERN. DR. ESPINOZA STATED THAT WE STILL WAITING ON FINAL RESULT OF CULTURE.
--- NOTE | 2020-08-19 06:52 | NUR ---
SPOKE TO DR. ESPINOZA NOTIFIED DR. ESPINOZA REGARDING DAUGHTER'S (ANUP) CONCERN. DR. ESPINOZA STATED THAT WE WILL WAITING ON FINAL RESULT OF CULTURE. Addendum: 08/19/20 at 0723 by Rosa Lam RN DISCARD.
[2020-08-19 07:05] LABS: ANION GAP 5 (5-15); CALCIUM 7.9 mg/dL (8.4-11.0); CHLORIDE 107 mmol/L (98-107); CREATININE 0.54 mg/dL (0.55-1.30); GLUCOSE 75 mg/dL (70-99); PHOSPHORUS 2.5 mg/dL (2.7-4.5); POTASSIUM 3.3 mmol/L (3.5-5.1); SODIUM SERUM 142 mmol/L (136-145); UREA NITROGEN, BLOOD 10 mg/dL (8-21)
--- NOTE | 2020-08-19 07:30 | NUR ---
Opening Note received bedside SBAR report from assistant casino shift manager RN, patient resting in bed, respirations even and unlabored on room air, no acute distress noted, educated patient on use of call light and asked to call for assistance, patient verbalized understanding, call light in reach, bed in low and locked position, bed alarm on.
[2020-08-19 08:00] VITALS: BP_SYST 156
[2020-08-19] MEDS ORDERED: POTASSIUM CHLORIDE 20 MEQ TAB.PRT.SR PO ONE (08:15)
--- NOTE | 2020-08-19 08:16 | NUR ---
Physician Speaking with Daughter patients daughter Nayana called and requested to speak with patients physician, Dr. Manuel speaking with patients daughter Nayana on telephone.
[2020-08-19] MEDS: DICLOFENAC SODIUM 1% TP SCH (09:00)
[2020-08-19] MEDS: CHOLECALCIFEROL (VITAMIN D3) 2,000 UNIT TABLET PO SCH (09:01)
[2020-08-19] MEDS: ATORVASTATIN 20 MG TABLET PO SCH (09:01)
[2020-08-19] MEDS: BACLOFEN 10 MG TABLET PO SCH ×2 (09:01→20:33)
[2020-08-19] MEDS: FOLIC ACID 1 MG TABLET PO SCH (09:01)
[2020-08-19] MEDS: LACTOBACILLUS RHAMNOSUS GG 1 CAP CAPSULE PO SCH ×3 (09:01→20:34)
[2020-08-19] MEDS: GABAPENTIN 300 MG CAPSULE PO SCH ×3 (09:01→20:32)
[2020-08-19] MEDS: predniSONE 5 MG TABLET PO SCH (09:01)
[2020-08-19] MEDS: CARVEDILOL 12.5 MG TABLET (COREG) PO SCH ×2 (09:01→20:34)
[2020-08-19] MEDS: ASCORBIC ACID 500 MG TABLET PO SCH (09:01)
[2020-08-19] MEDS: oxyCODONE HCL 5 MG TABLET PO SCH ×2 (09:02→20:35)
[2020-08-19] MEDS: sulfASALAZINE 500 MG TABLET (AZULFIDINE) PO SCH ×2 (09:05→20:35)
--- NOTE | 2020-08-19 09:05 | NUR ---
bedside commode patient used bedside commode with assistance from AUTOMOTIVE PAINTER, BM x1, voided x1, called lab and spoke with Judy, informed her of orders for stool sample for c-diff and that stool was contaminated with urine, per Judy the stool sample cannot be contaminated with urine, unable to collect stool sample at this time due to urine contamination, patient resting in bed, no acute distress noted.
[2020-08-19] MEDS: FERROUS GLUCONATE 300 MG TABLET PO SCH ×3 (09:06→20:34)
[2020-08-19] MEDS: KETOCONAZOLE 2%, 60 GM TOPICAL CREAM. (NIZORAL) TP SCH (09:06)
--- NOTE | 2020-08-19 09:30 | NUR ---
Spoke with Physician/Case Management spoke with Dr. Manuel, per Dr. Manuel patients daughter was not happy with home health agency that was previously arranged, per Dr. Manuel [facility] should be used instead, spoke with LORRAINE Hatch, informed her that per Dr. Kaleb Ray should be used, per Mamie we need to know if patient will be on PO or IV antibiotics and are still awaiting urine culture results.
--- NOTE | 2020-08-19 09:58 | NUR ---
Physical Therapy patient ambulating in van with physical therapy and cane, patient tolerating well.
[2020-08-19 12:00] VITALS: BP_SYST 130
--- NOTE | 2020-08-19 12:25 | NUR ---
Spoke with Patients daughter spoke with patients daughter Nayana, per Nayana she wants to know if patient can be switched from IV antibiotics to PO antibiotics so that the PICC line can be discontinued and patient can go home, informed her that the results of the blood culture are still pending, Nayana requesting to have RN follow up with Dr. Poon regarding having the IV antibiotics switched to PO, will follow up with Dr. Poon. Addendum: 08/19/20 at 1321 by Mally Craven RN add to above note: per Nayana she would like to bring in food for the patient, okay for her to bring in food per tip finisher Lora, informed patient that her daughter is going to bring her lunch, per patient she already ate and will call her daughter to let her know.
--- NOTE | 2020-08-19 13:58 | NUR ---
Bedside Commode/Bed bath patient requesting to use bedside commode, assisted patient to use bedside commode, voided x1, assisted patient back to bed, patient requesting to have bed bath, assisted patient with bed bath, linen and gown changed, patient tolerated well, assisted patient to reposition, patient resting in bed.
--- NOTE | 2020-08-19 14:51 | NUR ---
Called Laboratory called lab regarding results of blood culture, blood culture says "ID and susceptibilities to follow", they state that the cultures are sent out to [facility] and the results are not back yet.
--- NOTE | 2020-08-19 15:38 | NUR ---
RN Rounds patient sitting up in bed on phone, respirations even and unlabored, patient reports pain is controlled at this time, no acute distress noted.
[2020-08-19 16:13] VITALS: BP_SYST 134
--- NOTE | 2020-08-19 16:46 | NUR ---
Spoke with patients daughter received call from patients daughter Nayana, per Nayana she is concerned because she called the patient and patient did not answer her phone, informed her that patient is currently using the bedside commode with assistance from the SUGAR TRUCKERNayana asking for updates on patient, informed her that patient received IV rocephin today, informed her that susceptibility report for blood culture is still pending, informed her that Dr. Poon has not yet rounded, Nayana requesting to have RN inform patient that she will try to bring the patients food before 6pm and to have RN assist patient to turn the ringer volume on the patients phone, informed patient that Nayana will try to bring her food before 6pm and assisted patient to turn ringer volume on, patient resting in bed, respirations even and unlabored on room air, patient denies any pain.
--- NOTE | 2020-08-19 18:05 | NUR ---
RN Rounds patients daughter did not yet bring in food for patient, patient does not wish to wait for food from home, patient provided with dinner tray, patient sitting up in bed eating dinner, tolerating well.
--- NOTE | 2020-08-19 19:19 | NUR ---
Closing Note bedside SBAR report given to receiving RN, patient resting in bed, patients daughter brought in food for patient, food provided to patient, respirations even and unlabored on room air, no acute distress noted, educated patient on use of call light and asked to call for assistance, patient verbalized understanding, call light in reach, bed in low and locked position, bed alarm on, care endorsed to Kaylene RN.
--- NOTE | 2020-08-19 19:40 | NUR ---
ROUNDS PATIENT IN BED, WATCHING TV, NOT IN DISTRESS, VITALS STABLE. ASSESSMENT DONE AND DOCUMENTED. SEE FLOWSHEET. NEEDS ATTENDED TO. SAFETY AND FALL MEASURES IN PLACED. BED IN LOW AND LOCKED POSITION. CALL LIGHT PLACED WITHIN REACH.
[2020-08-19] MEDS: PANTOPRAZOLE SODIUM 40 MG TAB PO SCH (20:33)
[2020-08-20 00:12] VITALS: BP_SYST 155
[2020-08-20] MEDS: NACL 0.9% 1,000 ML IV SCH (00:13)
[2020-08-20] MEDS: LEVOTHYROXINE SODIUM 0.075 MG TABLET PO SCH (06:25)
[2020-08-20 06:30] LABS: BASOPHILS # (AUTO) 0.1 K/uL (0.0-0.2); BASOPHILS % (AUTO) 0.7 % (0.0-2.0); EOSINOPHILS # (AUTO) 0.7 K/uL (0.0-0.4); EOSINOPHILS % (AUTO) 6.7 % (0.0-4.0); HEMATOCRIT 30.1 % (36-48); HEMOGLOBIN 9.7 g/dL (12.0-16.0); LYMPHOCYTES # (AUTO) 1.7 K/uL (1.0-5.5); LYMPHOCYTES % (AUTO) 17.8 % (20.5-51.5); MEAN CORPUSCULAR HEMOGLOBIN 32 pg (27-31); MEAN CORPUSCULAR HGB CONC 32 % (32-36); MEAN CORPUSCULAR VOLUME 98 fL (79.0-98.0); MONOCYTES # (AUTO) 0.8 K/uL (0.0-1.0); MONOCYTES % (AUTO) 7.8 % (1.7-9.3); NEUTROPHILS # (AUTO) 6.6 K/uL (1.8-7.7); PLATELET COUNT (AUTO) 189 K/uL (130-430); RED BLOOD CELL COUNT(AUTO) 3.07 MIL/uL (4.2-6.2); RED CELL DISTRIBUTION WIDTH 15.3 % (9.0-15.0); WHITE BLOOD COUNT (AUTO) 9.8 K/uL (4.8-10.8)
[2020-08-20 06:35] LABS: ANION GAP 4 (5-15); CALCIUM 7.8 mg/dL (8.4-11.0); CHLORIDE 106 mmol/L (98-107); CREATININE 0.67 mg/dL (0.55-1.30); GLUCOSE 81 mg/dL (70-99); POTASSIUM 3.5 mmol/L (3.5-5.1); SODIUM SERUM 140 mmol/L (136-145); UREA NITROGEN, BLOOD 8 mg/dL (8-21)
[2020-08-20 08:00] VITALS: BP_SYST 146
[2020-08-20] MEDS: DICLOFENAC SODIUM 1% TP SCH (09:00)
[2020-08-20] MEDS: GABAPENTIN 300 MG CAPSULE PO SCH ×3 (09:20→21:15)
[2020-08-20] MEDS: CHOLECALCIFEROL (VITAMIN D3) 2,000 UNIT TABLET PO SCH (09:20)
[2020-08-20] MEDS: CARVEDILOL 12.5 MG TABLET (COREG) PO SCH ×2 (09:21→21:16)
[2020-08-20] MEDS: sulfASALAZINE 500 MG TABLET (AZULFIDINE) PO SCH ×2 (09:22→21:17)
[2020-08-20] MEDS: ATORVASTATIN 20 MG TABLET PO SCH (09:22)
[2020-08-20] MEDS: FERROUS GLUCONATE 300 MG TABLET PO SCH ×3 (09:22→21:17)
[2020-08-20] MEDS: ASCORBIC ACID 500 MG TABLET PO SCH (09:22)
[2020-08-20] MEDS: BACLOFEN 10 MG TABLET PO SCH ×2 (09:22→21:18)
[2020-08-20] MEDS: predniSONE 5 MG TABLET PO SCH (09:22)
[2020-08-20] MEDS: oxyCODONE HCL 5 MG TABLET PO SCH ×2 (09:23→21:18)
[2020-08-20] MEDS: FOLIC ACID 1 MG TABLET PO SCH (09:23)
[2020-08-20] MEDS: LACTOBACILLUS RHAMNOSUS GG 1 CAP CAPSULE PO SCH ×3 (09:23→21:17)
[2020-08-20] MEDS: KETOCONAZOLE 2%, 60 GM TOPICAL CREAM. (NIZORAL) TP SCH (09:24)
--- NOTE | 2020-08-20 10:02 | NUR ---
alert, oriented, appropriate, walked to the bathroom with walker, just standby assistance. given a hat to collect the stool for specimen, mixed with urine when she had bm, collection unable to collect.
[2020-08-20 12:19] VITALS: BP_SYST 162
[2020-08-20 16:00] VITALS: BP_SYST 163
--- NOTE | 2020-08-20 16:34 | NUR ---
daughter called, , and patient's condition updated, very much in details. per ID , who saw the patient, we are waiting for the final results of bc, to see sensitivities as well as resistant, so she can be discharged , if possible, with po abx. Message relayed to the person concerned, and author will call her when gets the results. right now, patient is getting ROCEPHIN, ivpb, empirically. Daughter verbalized understanding.
--- NOTE | 2020-08-20 19:35 | NUR ---
ROUNDS PATIENT IN BED, WATCHING TV, NOT IN DISTRESS, VITALS STABLE. DENIES ANY PAIN AT THIS TIME. ASSESSMENT DONE AND DOCUMENTED. SEE FLOWSHEET. NEEDS ATTENDED TO. SAFETY AND FALL MEASURES IN PLACED. BED IN LOW AND LOCKED POSITION. CALL LIGHT PLACED WITHIN REACH.
[2020-08-20 20:00] VITALS: BP_SYST 156
--- NOTE | 2020-08-20 21:15 | NUR ---
MEDICATION DUE MEDICATIONS GIVEN SCHEDULED, TOLERATED WELL. WILL CONTINUE TO MONITOR.
[2020-08-20] MEDS: PANTOPRAZOLE SODIUM 40 MG TAB PO SCH (21:16)
--- NOTE | 2020-08-21 00:12 | NUR ---
ROUNDS PATIENT SLEEPING, VITALS STABLE, NO SIGNS OF ANY PAIN AND DISCOMFORT NOTED. WILL CONTINUE TO MONITOR.
[2020-08-21 00:18] VITALS: BP_SYST 151
--- NOTE | 2020-08-21 02:24 | NUR ---
ROUNDS PATIENT ASLEEP, NO SOB NOTED, RESPIRATIONS EVEN AND UNLABORED. WILL CONTINUE TO MONITOR.
--- NOTE | 2020-08-21 04:16 | NUR ---
ROUNDS PATIENT ASLEEP, RESPIRATIONS EVEN AND UNLABORED, WILL CONTINUE TO MONITOR.
[2020-08-21] MEDS: LEVOTHYROXINE SODIUM 0.075 MG TABLET PO SCH (06:05)
[2020-08-21] MEDS: NACL 0.9% 1,000 ML IV SCH (06:05)
--- NOTE | 2020-08-21 06:27 | NUR ---
CLOSING NOTES PATIENT AWAKE, VITALS STABLE, NO COMPLAINTS AT THIS TIME. SAFETY MEASURES MAINTAINED. BED IN LOW AND LOCKED POSITION. CALL LIGHT PLACED WITHIN REACH.
[2020-08-21 06:36] LABS: BASOPHILS # (AUTO) 0.1 K/uL (0.0-0.2); BASOPHILS % (AUTO) 0.9 % (0.0-2.0); EOSINOPHILS # (AUTO) 0.7 K/uL (0.0-0.4); EOSINOPHILS % (AUTO) 6.7 % (0.0-4.0); HEMATOCRIT 29.6 % (36-48); HEMOGLOBIN 9.7 g/dL (12.0-16.0); LYMPHOCYTES % (AUTO) 19.4 % (20.5-51.5); MEAN CORPUSCULAR HEMOGLOBIN 32 pg (27-31); MEAN CORPUSCULAR HGB CONC 33 % (32-36); MEAN CORPUSCULAR VOLUME 99 fL (79.0-98.0); MONOCYTES # (AUTO) 0.8 K/uL (0.0-1.0); MONOCYTES % (AUTO) 7.8 % (1.7-9.3); NEUTROPHILS # (AUTO) 6.6 K/uL (1.8-7.7); NEUTROPHILS % (AUTO) 65.2 % (40.0-70.0); PLATELET COUNT (AUTO) 189 K/uL (130-430); RED CELL DISTRIBUTION WIDTH 15.8 % (9.0-15.0); WHITE BLOOD COUNT (AUTO) 10.2 K/uL (4.8-10.8)
[2020-08-21 07:46] LABS: ANION GAP 8 (5-15); CALCIUM 8.3 mg/dL (8.4-11.0); CHLORIDE 105 mmol/L (98-107); CREATININE 0.66 mg/dL (0.55-1.30); GLUCOSE 83 mg/dL (70-99); POTASSIUM 3.5 mmol/L (3.5-5.1); SODIUM SERUM 141 mmol/L (136-145); UREA NITROGEN, BLOOD 8 mg/dL (8-21)
--- NOTE | 2020-08-21 08:00 | NUR ---
Opening Notes Patient is awake, alert and oriented x4. No resp distress noted. Breathing is even and unlabored. Pt denies any pain at this time. PICC line on NAMITA, double lumen, flushing well. NS @ 60 cc/hr, infusing well at this time. Repositioned in bed. Pt denies any NVD, cough or abnormal bleeding. All needs met. Safety and fall precautions in place. Bed in lowest position, alarm on, locked. Will continue to monitor.
[2020-08-21] MEDS: GABAPENTIN 300 MG CAPSULE PO SCH (08:39)
[2020-08-21] MEDS: sulfASALAZINE 500 MG TABLET (AZULFIDINE) PO SCH (08:39)
[2020-08-21] MEDS: FOLIC ACID 1 MG TABLET PO SCH (08:40)
[2020-08-21] MEDS: ASCORBIC ACID 500 MG TABLET PO SCH (08:40)
[2020-08-21] MEDS: oxyCODONE HCL 5 MG TABLET PO SCH (08:40)
[2020-08-21] MEDS: LACTOBACILLUS RHAMNOSUS GG 1 CAP CAPSULE PO SCH (08:40)
[2020-08-21] MEDS: FERROUS GLUCONATE 300 MG TABLET PO SCH (08:40)
[2020-08-21] MEDS: CHOLECALCIFEROL (VITAMIN D3) 2,000 UNIT TABLET PO SCH (08:40)
[2020-08-21] MEDS: CARVEDILOL 12.5 MG TABLET (COREG) PO SCH (08:41)
[2020-08-21] MEDS: ATORVASTATIN 20 MG TABLET PO SCH (08:41)
[2020-08-21] MEDS: DICLOFENAC SODIUM 1% TP SCH (08:42)
[2020-08-21] MEDS: predniSONE 5 MG TABLET PO SCH (08:42)
[2020-08-21] MEDS: KETOCONAZOLE 2%, 60 GM TOPICAL CREAM. (NIZORAL) TP SCH (08:42)
[2020-08-21] MEDS: BACLOFEN 10 MG TABLET PO SCH (08:42)
--- NOTE | 2020-08-21 10:00 | NUR ---
Notes Patient is awake, alert and oriented x4. No resp distress noted. Breathing is even and unlabored. Denies any pain at this time. Will continue to monitor.
[2020-08-21] MEDS ORDERED: METR500T PO (10:15)
[2020-08-21] MEDS ORDERED: LACT1CAP61 PO (10:15)
--- NOTE | 2020-08-21 10:30 | NUR ---
DISCHARGE PLANNING Received call from dtloraine Kraus, updated culture results back & have order to discharge home with home health. States she is in agreement, does want to use [facility]. When she spoke with Mary they would not do PICC but since PICC is coming out want to use [facility]. Updated tomasa Mark kit planner.
--- NOTE | 2020-08-21 10:51 | NUR ---
Discharge Planning: DCP confirm with Jodie at [facility] (f [phone] p [phone]) pt will discharge today.
[2020-08-21 11:24] VITALS: BP_SYST 151
--- NOTE | 2020-08-21 12:00 | NUR ---
Notes Patient is awake, alert and oriented x4. No resp distress noted. Breathing is even and unlabored. Pt denies any pain. No needs at this time. Will continue to monitor.
[2020-08-21 13:48] VITALS: BP_SYST 151
--- NOTE | 2020-08-21 14:00 | NUR ---
Notes/Removed PICC LINE Nurse removed pts PICC LINE on left upper arm, tolerated well. No bleeding noted. NO resp distress noted. Breathing is even and unlabored. Denies any pain at this time. Will continue to monitor.
--- NOTE | 2020-08-21 15:30 | NUR ---
D/C Patient Patient given medication reconciliation form and D/C instructions. Exit Care provided. Patient verbalized understanding. MD discussed with patient the results and treatment provided. Ambulatory with steady gait for discharge to home. Patient in stable condition, ID band removed. PICC LINE removed, intact and dressing applied, no active bleeding. Patient educated on pain management. All belongings sent with patient.
[2020-08-21 15:33] VITALS: BP_SYST 158
--- NOTE | 2020-08-26 12:19 | NUR ---
Discharge Follow Up Phone Call Phoned patient, . Patient stated she was okay but having perineal pain due to diarrhea and cleaning in the hospital. Will notify PI. [facility] RN and PT have been coming to the home. She will see her PCP today. Appointment with ID Dr Flynn on 09/04/20. They filled patient's prescriptions and she is taking them as directed. No other questions or concerns. Daughter wanted to be transferred to Medical Records.
== END 2020-08-21 15:45 | disposition home health service (06) | DRG 74 ==
LOC: SED 10:46 → STU 14:07 → SMU 08-17 10:14
PROVIDERS: ADMIT Family Medicine; ATTEND Family Medicine
DX: G90.9 Disorder of the autonomic nervous system, unspecified (principal); R78.81 Bacteremia; E44.1 Mild protein-calorie malnutrition; E87.2 Acidosis; N39.0 Urinary tract infection, site not specified; E03.9 Hypothyroidism, unspecified; I10 Essential (primary) hypertension; K80.20 Calculus of gallbladder without cholecystitis without obstruction; K21.9 Gastro-esophageal reflux disease without esophagitis; Z88.0 Allergy status to penicillin; M06.9 Rheumatoid arthritis, unspecified; R32 Unspecified urinary incontinence; R56.9 Unspecified convulsions; Z96.641 Presence of right artificial hip joint; Z20.828 Contact with and (suspected) exposure to other viral communicable diseases; E87.8 Other disorders of electrolyte and fluid balance, not elsewhere classified; M43.16 Spondylolisthesis, lumbar region; Z68.24 Body mass index [BMI] 24.0-24.9, adult
CPT/HCPCS: 36415; 70450-TC; 70486-TC; 70551; 71045; 73502; 80048; 80053; 81000-TC; 83605; 83735-TC; 84100-TC; 84484; 85025; 85610-TC; 85730-TC; 87040-TC; 87086; 87230-TC; 93005; 93306; 93880; 95816; 96365; 96367; 97110-GP; 97116-GP; 97530-GP; 99291; C1751; G0378; J0696; J1580; J1956; J2543; J3370; J7030; J7060; J7512

== ENCOUNTER 2024-08-15 14:34 | Outpatient (CLI) | payer OTHER, MEDICAID ==
[~2024-08-15 14:34] MED LIST changes: +BACL10TA PO; -CARV12.548 PO; +COR12.5 PO; -DICL75TA5 PO; +FERR236T3 PO; -FERR325T91 PO; -GABA-531 PO; +GLUC-160 PO; -HYDR200T80 PO; +KETO60CR2 TP; +LACT1CAP61 PO; -LEFL10TA16 PO; -LEVO250T2 PO; +LIOT5TAB11 PO; -MAGN250T10 PO; +METR500T PO; +NEU300 PO; +PANT20TA2 PO; +POLY30DR OP; +ROSU10TA2 PO; -SACC250C3 PO; +TRAM100T39 PO; -TRAM50TA92 PO; +VITA-345 PO; -VITA400C19 PO; +ZPACK; +[UNRECOGNIZED DRUG - OTHER] PO; +[UNRECOGNIZED DRUG - OTHER] PO
== END 2024-08-15 19:55 | disposition home or self-care (01) ==
LOC: SRD 14:34
PROVIDERS: ATTEND Family Medicine
DX: J18.9 Pneumonia, unspecified organism (principal); J98.4 Other disorders of lung
CPT/HCPCS: 71046

== ENCOUNTER 2024-08-17 10:28 | Inpatient (IN) | payer OTHER, MEDICAID ==
[2024-08-17] VITALS (8 sets, daily range): BP systolic 103–136; PULSE 80–90; RESP 18–22; TEMP 96.7–97.2; O2SAT 88–98
[~2024-08-17] VITALS: Ht 144.8 cm; Wt 59.0 kg
[2024-08-17 11:13] LABS: BILIRUBIN,URINE NEGATIVE (NEGATIVE); BLOOD, URINE NEGATIVE (NEGATIVE); CLARITY/URINE CLOUDY (CLEAR); COLOR,URINE YELLOW (YELLOW); GLUCOSE,URINE NEGATIVE (NEGATIVE); KETONES,URINE NEGATIVE (NEGATIVE); LEUKOCYTE ESTERASE ,URINE 2+ (NEGATIVE); NITRITE, URINE POSITIVE (NEGATIVE); PROTEIN URINE TRACE (NEGATIVE); UROBILINOGEN,URINE 0.2 (0.2-1.0)
[2024-08-17 11:22] LABS: BASOPHILS # (AUTO) 0.1 K/uL (0.0-0.2); BASOPHILS % (AUTO) 0.5 % (0.0-2.0); EOSINOPHILS # (AUTO) 1.6 K/uL (0.0-0.4); EOSINOPHILS % (AUTO) 9.1 % (0.0-4.0); HEMATOCRIT 34.8 % (36-48); HEMOGLOBIN 11.1 g/dL (12.0-16.0); LYMPHOCYTES # (AUTO) 1.2 K/uL (1.0-5.5); LYMPHOCYTES % (AUTO) 7.1 % (20.5-51.5); MEAN CORPUSCULAR HEMOGLOBIN 33 pg (27-31); MEAN CORPUSCULAR HGB CONC 32 % (32-36); MEAN CORPUSCULAR VOLUME 105 fL (79.0-98.0); MONOCYTES # (AUTO) 0.7 K/uL (0.0-1.0); MONOCYTES % (AUTO) 4.1 % (1.7-9.3); NEUTROPHILS # (AUTO) 13.6 K/uL (1.8-7.7); NEUTROPHILS % (AUTO) 79.2 % (40.0-70.0); PLATELET COUNT (AUTO) 174 K/uL (130-430); RED BLOOD CELL COUNT(AUTO) 3.32 MIL/uL (4.2-6.2); RED CELL DISTRIBUTION WIDTH 17.5 % (9.0-15.0); WHITE BLOOD COUNT (AUTO) 17.1 K/uL (4.8-10.8)
[2024-08-17 11:29] LABS: BACTERIA,URINE MODERATE /HPF (None Seen); MUCUS,URINE 1+ /LPF (None Seen); WBC,URINE 50-80 /HPF (0-3)
[2024-08-17 11:30] LABS: BARBITURATE, URINE NEGATIVE (NEG <=200); BENZODIAZEPINE, URINE NEGATIVE (NEG <=150); CANNABINOID, URINE NEGATIVE (NEG <=50); COCAINE, URINE NEGATIVE (NEG <=150); METHAMPHETAMINES SCREEN,URINE NEGATIVE (NEG <=500); OPIATE, URINE NEGATIVE (NEG <=100); PHENCYCLIDINE SCREEN,URINE NEGATIVE (NEG <=25); UR TRICYCLIC ANTIDEPRESSANTS NEGATIVE (NEG <=300); URINE AMPHETAMINE NEGATIVE (NEG <=500); URINE METHADONE NEGATIVE (NEG <=200); URINE OXYCODONE SCREEN NEGATIVE (NEG <=100)
[2024-08-17 12:02] LABS: INR 1.2 (0.8-1.2)
[2024-08-17 12:08] LABS: ALANINE AMINOTRANSFERASE 10 U/L (12-78); ALBUMIN 3.2 g/dL (3.4-4.8); ANION GAP 7 (5-15); ASPARTATE AMINOTRANSFERASE 16 U/L (10-37); BILIRUBIN,DIRECT 0.2 mg/dL (0.0-0.3); CALCIUM 9.6 mg/dL (8.4-11.0); CARBON DIOXIDE 33 mmol/L (23-29); CHLORIDE 106 mmol/L (98-107); CREATINE KINASE, TOTAL 29 U/L (26-192); CREATININE 0.97 mg/dL (0.55-1.30); GLUCOSE 100 mg/dL (74-106); POTASSIUM 3.9 mmol/L (3.5-5.1); SALICYLATE 3 mg/dL (3-30); SODIUM SERUM 146 mmol/L (136-145); TOTAL BILIRUBIN 0.6 mg/dL (0.0-1.0); TOTAL PROTEIN, SERUM 6.9 g/dL (6.4-8.3); UREA NITROGEN, BLOOD 38 mg/dL (8-21)
[2024-08-17 12:10] LABS: ACETAMINOPHEN < 1 ug/mL (1-30); ALCOHOL, BLOOD < 3 mg/dL (<10)
[2024-08-17 12:40] LABS: ACETONE, SERUM NEGATIVE (NEGATIVE)
[2024-08-17] MEDS: NACL 0.9% 1,000 ML IV ONE (13:02)
[2024-08-17] MEDS ORDERED: cefTRIAXone 1 GM VIAL ONE (13:22)
[2024-08-17] MEDS: cefTRIAXone 1 GM in D5W 50 ML IV ONE (13:35)
[2024-08-17] MEDS ORDERED: AZITHROMYCIN 500 MG in NS 250 ML IV SCH (18:30)
[2024-08-17] MEDS ORDERED: MORPHINE 4 MG INJ. 4 MG/ML VIAL IVP PRN (18:30)
[2024-08-17] MEDS ORDERED: ONDANSETRON HCL 4 MG/2 ML VIAL IVP PRN (18:30)
[2024-08-17] MEDS ORDERED: NALOXONE HCL 0.4 MG/ML AMP (NARCAN) IVP PRN (18:30)
[2024-08-17] MEDS: D5/0.45 NS 1,000 ML IV SCH (21:29)
[2024-08-17] MEDS: AZITHROMYCIN 500 MG in NS 250 ML IV SCH (22:19)
[2024-08-17] MEDS: AZITHROMYCIN 500 MG/VIAL (ZITHROMAX) IV ONE (22:23)
[2024-08-17] MEDS: ALBUTEROL SULFATE 0.083% 2.5 MG/3 ML VIAL.NEB INH SCH (23:23)
[2024-08-17] MEDS: IPRATROPIUM BROM 0.5 MG/2.5 ML VIAL.NEB (ATROVENT) INH SCH (23:23)
[2024-08-18] VITALS (13 sets, daily range): BP systolic 117–141; PULSE 73–98; RESP 17–21; TEMP 96.8–97.8; O2SAT 92–98
[2024-08-18] MEDS: MORPHINE 2 MG/ML INJ. SYRINGE IVP PRN (03:09)
[2024-08-18 08:26] LABS: BASOPHILS % (AUTO) 0.3 % (0.0-2.0); EOSINOPHILS # (AUTO) 1.3 K/uL (0.0-0.4); EOSINOPHILS % (AUTO) 14.9 % (0.0-4.0); HEMOGLOBIN 9.8 g/dL (12.0-16.0); LYMPHOCYTES # (AUTO) 1.5 K/uL (1.0-5.5); LYMPHOCYTES % (AUTO) 16.4 % (20.5-51.5); MEAN CORPUSCULAR HEMOGLOBIN 34 pg (27-31); MEAN CORPUSCULAR HGB CONC 33 % (32-36); MEAN CORPUSCULAR VOLUME 105 fL (79.0-98.0); MONOCYTES # (AUTO) 0.8 K/uL (0.0-1.0); MONOCYTES % (AUTO) 9.3 % (1.7-9.3); NEUTROPHILS # (AUTO) 5.3 K/uL (1.8-7.7); NEUTROPHILS % (AUTO) 59.1 % (40.0-70.0); PLATELET COUNT (AUTO) 140 K/uL (130-430); RED BLOOD CELL COUNT(AUTO) 2.87 MIL/uL (4.2-6.2); RED CELL DISTRIBUTION WIDTH 17.5 % (9.0-15.0)
[2024-08-18 08:46] LABS: ANION GAP 5 (5-15); CALCIUM 8.6 mg/dL (8.4-11.0); CARBON DIOXIDE 32 mmol/L (23-29); CHLORIDE 108 mmol/L (98-107); CREATININE 0.76 mg/dL (0.55-1.30); GLUCOSE 133 mg/dL (74-106); POTASSIUM 3.4 mmol/L (3.5-5.1); SODIUM SERUM 145 mmol/L (136-145); UREA NITROGEN, BLOOD 26 mg/dL (8-21)
[2024-08-18] MEDS: cefTRIAXone 1 GM IVPB PREMIX 50 ML IV SCH (09:18)
[2024-08-18] MEDS: KCL 40 mEq in 100 mL (PREMIX) 100 ML IV ONE (12:28)
[2024-08-18] MEDS ORDERED: HERB PO SCH (15:45)
[2024-08-18] MEDS ORDERED: POVIDONE OP SCH (15:45)
[2024-08-18] MEDS ORDERED: POLYVINYL ALCOHOL OP SCH (15:45)
[2024-08-18] MEDS ORDERED: BOSWELLIA SERRA PO SCH (15:45)
[2024-08-18] MEDS ORDERED: DICLOFENAC SODIUM 1% TP SCH (15:45)
[2024-08-18] MEDS ORDERED: GLUCOSAMINE PO SCH (15:45)
[2024-08-18] MEDS ORDERED: [UNRECOGNIZED DRUG - OTHER] PO SCH (15:45)
[2024-08-18] MEDS: KETOCONAZOLE 2%, 60 GM TOPICAL CREAM. (NIZORAL) TP SCH (15:45)
[2024-08-18] MEDS ORDERED: [UNRECOGNIZED DRUG - OTHER] PO SCH (15:45)
[2024-08-18] MEDS: LEVOTHYROXINE SODIUM 0.075 MG TABLET PO SCH (15:45)
[2024-08-18] MEDS ORDERED: B12 PO SCH (15:45)
[2024-08-18] MEDS ORDERED: [UNRECOGNIZED DRUG - OTHER] OP SCH (15:45)
[2024-08-18] MEDS ORDERED: OXYBUTYNIN CHLORIDE 5 MG XL TAB PO SCH (15:45)
[2024-08-18] MEDS ORDERED: D3 PO SCH (15:45)
[2024-08-18] MEDS: ACETAMINOPHEN 325 MG TABLET PO PRN (16:36)
[2024-08-18] MEDS ORDERED: traMADol HCL HCL 50 MG TABLET (ULTRAM) PO PRN (17:00)
[2024-08-18] MEDS ORDERED: OMEPRAZOLE Non-Formulary 20 MG CAPSULE.DR PO SCH (17:00)
[2024-08-18] MEDS: CEFEPIME 1 GM in D5W 50 ML IV SCH (20:04)
[2024-08-18] MEDS ORDERED: LEVO100T9 PO (20:41)
[2024-08-18] MEDS: BACLOFEN 10 MG TABLET PO SCH (20:45)
[2024-08-18] MEDS: CARVEDILOL 12.5 MG TABLET (COREG) PO SCH (20:45)
[2024-08-18] MEDS ORDERED: VIT1CAPS46 PO (20:46)
[2024-08-18] MEDS: sulfaSALAzine 500 MG TABLET PO SCH (20:46)
[2024-08-18] MEDS: oxyBUTYnin chloride 5 MG TABLET PO SCH (20:46)
[2024-08-18] MEDS: ATORVASTATIN 20 MG TABLET PO SCH (20:46)
[2024-08-18] MEDS: ASPIRIN 81 MG TAB.CHEW PO SCH (20:46)
[2024-08-18] MEDS: GABAPENTIN 300 MG CAPSULE PO SCH (20:47)
[2024-08-18] MEDS ORDERED: LIOT25TA13 PO (20:54)
[2024-08-18] MEDS ORDERED: ROSUVASTATIN CALCIUM 5 MG/TAB (CRESTOR) PO SCH (21:00)
[2024-08-19] VITALS (13 sets, daily range): BP systolic 115–139; PULSE 67–93; RESP 15–20; TEMP 97.1–98.2; O2SAT 90–99
[2024-08-19 07:38] LABS: BASOPHILS % (AUTO) 0.4 % (0.0-2.0); EOSINOPHILS # (AUTO) 1.3 K/uL (0.0-0.4); EOSINOPHILS % (AUTO) 15.8 % (0.0-4.0); HEMATOCRIT 29.7 % (36-48); HEMOGLOBIN 9.5 g/dL (12.0-16.0); LYMPHOCYTES # (AUTO) 1.5 K/uL (1.0-5.5); LYMPHOCYTES % (AUTO) 18.5 % (20.5-51.5); MEAN CORPUSCULAR HEMOGLOBIN 34 pg (27-31); MEAN CORPUSCULAR HGB CONC 32 % (32-36); MEAN CORPUSCULAR VOLUME 106 fL (79.0-98.0); MONOCYTES # (AUTO) 0.7 K/uL (0.0-1.0); MONOCYTES % (AUTO) 8.3 % (1.7-9.3); NEUTROPHILS # (AUTO) 4.7 K/uL (1.8-7.7); PLATELET COUNT (AUTO) 151 K/uL (130-430); RED BLOOD CELL COUNT(AUTO) 2.81 MIL/uL (4.2-6.2); RED CELL DISTRIBUTION WIDTH 17.1 % (9.0-15.0); WHITE BLOOD COUNT (AUTO) 8.2 K/uL (4.8-10.8)
[2024-08-19 07:46] LABS: ALANINE AMINOTRANSFERASE 10 U/L (12-78); ALBUMIN 2.4 g/dL (3.4-4.8); ANION GAP 8 (5-15); ASPARTATE AMINOTRANSFERASE 18 U/L (10-37); CALCIUM 8.5 mg/dL (8.4-11.0); CARBON DIOXIDE 30 mmol/L (23-29); CHLORIDE 99 mmol/L (98-107); GLUCOSE 110 mg/dL (74-106); POTASSIUM 3.7 mmol/L (3.5-5.1); SODIUM SERUM 137 mmol/L (136-145); TOTAL BILIRUBIN 0.2 mg/dL (0.0-1.0); TOTAL PROTEIN, SERUM 5.6 g/dL (6.4-8.3); UREA NITROGEN, BLOOD 20 mg/dL (8-21)
[2024-08-19 08:58] LABS: ERYTHROCYTE SEDIMENTATION RATE 33 MM/HR (0-20)
[2024-08-19] MEDS: PANTOPRAZOLE SODIUM 40 MG TAB PO SCH (09:11)
[2024-08-19] MEDS: CHOLECALCIFEROL (VITAMIN D3) 2,000 UNIT TABLET PO SCH (09:11)
[2024-08-19] MEDS: FOLIC ACID 1 MG TABLET PO SCH (09:11)
[2024-08-19] MEDS: VITAMIN E 400 UNIT CAPSULE PO SCH (09:11)
[2024-08-19] MEDS: ASCORBIC ACID 500 MG TABLET PO SCH (09:11)
[2024-08-19] MEDS: FERROUS GLUCONATE 324 MG TABLET PO SCH (09:12)
[2024-08-19] MEDS: MULTIVITS,CA,MINERALS/IRON/FA 1 TABLET PO SCH (09:12)
[2024-08-19] MEDS: LACTOBACILLUS RHAMNOSUS GG 1 CAP CAPSULE PO SCH (09:14)
[2024-08-19] MEDS ORDERED: IPRATROPIUM BROM 0.5 MG/2.5 ML VIAL.NEB (ATROVENT) INH PRN (11:00)
[2024-08-19 11:39] LABS: ANISOCYTOSIS 1+; TARGET CELLS RARE
[2024-08-19] MEDS: IPRATROPIUM/ALBUTEROL SULFATE 3 ML AMPUL.NEB (DUONEB) INH SCH (11:40)
[2024-08-19] MEDS: NORMAL SALINE 5 ML DISP.SYRIN IVF SCH (15:20)
[2024-08-19] MEDS: MEROPENEM 1 GM in NS 100 ML IV SCH (15:20)
[2024-08-20] VITALS (13 sets, daily range): BP systolic 100–154; PULSE 70–96; RESP 16–20; TEMP 97.9–99.1; O2SAT 94–99
[2024-08-20] MEDS: LEVOTHYROXINE SODIUM 0.1 MG TABLET PO SCH (06:33)
[2024-08-20 07:17] LABS: BASOPHILS % (AUTO) 0.2 % (0.0-2.0); EOSINOPHILS # (AUTO) 1.2 K/uL (0.0-0.4); EOSINOPHILS % (AUTO) 13.4 % (0.0-4.0); HEMATOCRIT 29.7 % (36-48); HEMOGLOBIN 9.5 g/dL (12.0-16.0); LYMPHOCYTES # (AUTO) 1.4 K/uL (1.0-5.5); LYMPHOCYTES % (AUTO) 16.2 % (20.5-51.5); MEAN CORPUSCULAR HEMOGLOBIN 34 pg (27-31); MEAN CORPUSCULAR HGB CONC 32 % (32-36); MEAN CORPUSCULAR VOLUME 105 fL (79.0-98.0); MONOCYTES # (AUTO) 0.6 K/uL (0.0-1.0); MONOCYTES % (AUTO) 6.8 % (1.7-9.3); NEUTROPHILS # (AUTO) 5.5 K/uL (1.8-7.7); NEUTROPHILS % (AUTO) 63.4 % (40.0-70.0); PLATELET COUNT (AUTO) 164 K/uL (130-430); RED BLOOD CELL COUNT(AUTO) 2.85 MIL/uL (4.2-6.2); RED CELL DISTRIBUTION WIDTH 16.7 % (9.0-15.0); WHITE BLOOD COUNT (AUTO) 8.7 K/uL (4.8-10.8)
[2024-08-20 07:46] LABS: ANION GAP 7 (5-15); CALCIUM 8.6 mg/dL (8.4-11.0); CARBON DIOXIDE 28 mmol/L (23-29); CHLORIDE 109 mmol/L (98-107); GLUCOSE 85 mg/dL (74-106); SODIUM SERUM 144 mmol/L (136-145); UREA NITROGEN, BLOOD 14 mg/dL (8-21)
[2024-08-20 07:50] LABS: ERYTHROCYTE SEDIMENTATION RATE 47 MM/HR (0-20)
[2024-08-20] MEDS: ENOXAPARIN SODIUM 30 MG/0.3 ML SYRINGE SUBCUT SCH (10:23)
[2024-08-21] VITALS (10 sets, daily range): BP systolic 104–140; PULSE 77–98; RESP 16–20; TEMP 95.6–98.3; O2SAT 92–96
[2024-08-21 06:50] LABS: BASOPHILS % (AUTO) 0.4 % (0.0-2.0); EOSINOPHILS # (AUTO) 0.9 K/uL (0.0-0.4); EOSINOPHILS % (AUTO) 10.3 % (0.0-4.0); HEMOGLOBIN 9.7 g/dL (12.0-16.0); LYMPHOCYTES # (AUTO) 1.7 K/uL (1.0-5.5); LYMPHOCYTES % (AUTO) 19.8 % (20.5-51.5); MEAN CORPUSCULAR HEMOGLOBIN 34 pg (27-31); MEAN CORPUSCULAR HGB CONC 32 % (32-36); MEAN CORPUSCULAR VOLUME 104 fL (79.0-98.0); MONOCYTES # (AUTO) 0.6 K/uL (0.0-1.0); MONOCYTES % (AUTO) 7.2 % (1.7-9.3); NEUTROPHILS # (AUTO) 5.3 K/uL (1.8-7.7); NEUTROPHILS % (AUTO) 62.3 % (40.0-70.0); PLATELET COUNT (AUTO) 158 K/uL (130-430); RED BLOOD CELL COUNT(AUTO) 2.88 MIL/uL (4.2-6.2); RED CELL DISTRIBUTION WIDTH 16.2 % (9.0-15.0); WHITE BLOOD COUNT (AUTO) 8.6 K/uL (4.8-10.8)
[2024-08-21 07:46] LABS: ALANINE AMINOTRANSFERASE 15 U/L (12-78); ALBUMIN 2.4 g/dL (3.4-4.8); ANION GAP 4 (5-15); ASPARTATE AMINOTRANSFERASE 18 U/L (10-37); CALCIUM 8.9 mg/dL (8.4-11.0); CARBON DIOXIDE 30 mmol/L (23-29); CHLORIDE 110 mmol/L (98-107); CREATININE 0.66 mg/dL (0.55-1.30); GLUCOSE 83 mg/dL (74-106); POTASSIUM 3.9 mmol/L (3.5-5.1); SODIUM SERUM 144 mmol/L (136-145); TOTAL BILIRUBIN 0.3 mg/dL (0.0-1.0); TOTAL PROTEIN, SERUM 5.5 g/dL (6.4-8.3); UREA NITROGEN, BLOOD 11 mg/dL (8-21)
[2024-08-21] MEDS ORDERED: MERO1VIA23 IV (09:43)
== END 2024-08-21 17:45 | disposition home health service (06) | DRG 871 ==
LOC: SED 10:28 → STU 13:38 → SMU 08-21 05:47
PROVIDERS: ADMIT Preventive Medicine Preventive Medicine/Occupational Environmental Medicine; ATTEND Preventive Medicine Preventive Medicine/Occupational Environmental Medicine
PROC: 05HY33Z Insertion of Infusion Device into Upper Vein, Percutaneous Approach (ICD-10-PCS; principal; 2024-08-17)
DX: A41.51 Sepsis due to Escherichia coli [E. coli] (principal); E43 Unspecified severe protein-calorie malnutrition; J18.9 Pneumonia, unspecified organism; N39.0 Urinary tract infection, site not specified; J44.0 Chronic obstructive pulmonary disease with (acute) lower respiratory infection; J44.1 Chronic obstructive pulmonary disease with (acute) exacerbation; E87.0 Hyperosmolality and hypernatremia; D64.9 Anemia, unspecified; E03.9 Hypothyroidism, unspecified; E78.5 Hyperlipidemia, unspecified; F03.90 Unspecified dementia, unspecified severity, without behavioral disturbance, psychotic disturbance, mood disturbance, and anxiety; E88.09 Other disorders of plasma-protein metabolism, not elsewhere classified; G89.4 Chronic pain syndrome; I10 Essential (primary) hypertension; M19.021 Primary osteoarthritis, right elbow; Z78.9 Other specified health status; Z79.899 Other long term (current) drug therapy; Z88.8 Allergy status to other drugs, medicaments and biological substances; Z68.28 Body mass index [BMI] 28.0-28.9, adult
CPT/HCPCS: 36415; 70450-TC; 71045; 71046; 73552; 76770; 80048; 80053; 80076; 80307; 81000; 81001; 81015; 82009; 82140; 82550; 83605; 83880; 84484; 85025; 85610; 85651; 85730; 87040; 87086; 87186; 92610-GN; 93005; 94640; 94760; 97110-GP; 97530-GP; 99285; G0378; G0480; G0481; G0482; J0456; J0692; J0696; J1650; J1956; J2185; J2270; J3480; J7030; J7050; J7060